=== PATIENT | male | born 1980 | race Caucasian/White ===

== ENCOUNTER → 2020-10-23 11:45 | Outpatient (CLI) | payer OTHER, SELFPAY ==
[2020-10-24 12:32] LABS: Covid-19 Nasal PCR Sendout Lex Not Detected
== END ==
PROVIDERS: PCP Family Medicine; Visit Provider Family Medicine
DX: Z03.818 Encounter for observation for suspected exposure to other biological agents ruled out (principal)
CPT/HCPCS: U0004

== ENCOUNTER → 2021-06-30 09:17 | Outpatient (CLI) | payer OTHER, SELFPAY ==
[2021-06-30 09:45] LABS: Coronavirus 19, PCR Not Detected (NotDetected); Influenza A, PCR Not Detected (NotDetected); Influenza B, PCR Not Detected (NotDetected)
== END ==
PROVIDERS: PCP Family Medicine; Visit Provider Family Medicine
DX: Z11.52 Encounter for screening for COVID-19 (principal)
CPT/HCPCS: U0003